=== PATIENT | male | born 1970 | race Caucasian/White ===

== ENCOUNTER 2021-09-23 16:04 | Emergency (ER) | payer OTHER ==
[~2021-09-23] VITALS: Ht 195.6 cm; Wt 102.1 kg
[2021-09-23 16:19] VITALS: BP 126/96
[2021-09-23] MEDS ORDERED: ONDANSETRON 4 MG/2 ML VIAL IVP ONE (16:55)
[2021-09-23] MEDS ORDERED: NACL 0.9% 1,000 ML IV ONE (16:55)
[2021-09-23] MEDS ORDERED: BACITRACIN OINT 500 UNITS/GM PKT TP ONE (17:15)
[2021-09-23 18:04] LABS: BASOPHILS # (AUTO) 0.1 K/uL (0.00-0.22); BASOPHILS % (AUTO) 0.7 % (0.0-2.0); EOSINOPHILS % (AUTO) 0.3 % (0.0-4.0); HEMOGLOBIN 15.4 g/dL (12.0-18.0); LYMPHOCYTES # (AUTO) 0.7 K/uL (2.0-11.5); LYMPHOCYTES % (AUTO) 6.5 % (20.5-51.1); MEAN CORPUSCULAR HEMOGLOBIN 33 pg (27-31); MEAN CORPUSCULAR HGB CONC 35 g/dL (33-37); MEAN CORPUSCULAR VOLUME 94.1 fL (80-94); MONOCYTES # (AUTO) 0.6 K/uL (0.8-1.0); MONOCYTES % (AUTO) 5.7 % (1.7-9.3); NEUTROPHILS # (AUTO) 9.1 K/uL (1.8-7.7); NEUTROPHILS % (AUTO) 86.8 % (42.2-75.2); PLATELET COUNT (AUTO) 172 K/uL (140-450); RED BLOOD CELL COUNT(AUTO) 4.68 MIL/uL (4.20-6.10); RED CELL DISTRIBUTION WIDTH 12.6 % (11.6-13.7); WHITE BLOOD COUNT (AUTO) 10.5 K/uL (4.8-10.8)
[2021-09-23 18:34] LABS: ALBUMIN 3.9 g/dL (3.4-5.0); CARBON DIOXIDE 23.3 mmol/L (21-32); CREATININE 1.3 mg/dL (0.6-1.3); POTASSIUM 4.3 mmol/L (3.5-5.1)
[2021-09-23] MEDS ORDERED: ONDA-188 SL (19:08)
[2021-09-23 19:22] VITALS: BP 121/72
== END 2021-09-23 19:22 | disposition home or self-care (01) ==
LOC: MED 16:04
DX: R11.10 Vomiting, unspecified (principal); R42 Dizziness and giddiness; R05.9 Cough, unspecified; Z88.0 Allergy status to penicillin
CPT/HCPCS: 36415; 70450; 71045; 80053; 83605; 83690; 83880; 84484; 85025; 93005; 96361; 96374; 99285; J2405; Q0092; J7030